=== PATIENT | male | born 1995 | race Caucasian/White ===

== ENCOUNTER 2018-09-19 20:05 | Emergency (ER) | payer SELFPAY ==
[~2018-09-19] VITALS: Ht 175.3 cm; Wt 109.3 kg
[2018-09-19 20:17] VITALS: BP 141/68
--- NOTE | 2018-09-19 20:19 | NUR ---
PT TO LOBBY W/ FRIEND JACK
--- NOTE | 2018-09-19 21:02 | NUR ---
PT TO ER BED 12
--- NOTE | 2018-09-19 21:05 | NUR ---
PATIENT PRESENTS TO ED WITH COUGH X 2 DAYS. PT STATES HE HAS NO RELIEF AND IS UNABLE TO SLEEP. PT HAS WHEEZING IN THE RIGHT LUNG EXPIRATORY. LEFT LUNG SOUNDS CLEAR. PATIENT STATES PAIN OF 5/10 AT THIS TIME; VSS; PATIENT POSITIONED FOR COMFORT; HOB ELEVATED; BEDRAILS UP X2; BED DOWN. ER MD MADE AWARE OF PT STATUS.
[2018-09-19] MEDS ORDERED: methylPREDNISolone SS 125 MG/2 ML VIAL IM ONE (21:30)
[2018-09-19] MEDS ORDERED: ALBUTEROL SULFATE/IPRATROPIU 3 ML SOL IH ONE (21:30)
[2018-09-19 23:05] VITALS: BP 137/85
--- NOTE | 2018-09-19 23:05 | NUR ---
Patient discharged with v/s stable. Written and verbal after care instructions given and explained. Patient alert, oriented and verbalized understanding of instructions. Ambulatory with steady gait. All questions addressed prior to discharge. ID band removed. Patient advised to follow up with PMD. Rx of PREDNISONE 50MG, PROMETHAZINE 6.25MG-15MG/5ML AND ALBUTEROL 90MCG/ACTUATION given. Patient educated on indication of medication including possible reaction and side effects. Opportunity to ask questions provided and answered.
== END 2018-09-19 23:05 | disposition home or self-care (01) ==
LOC: MED 20:05
DX: R05 Cough (principal); R06.02 Shortness of breath; R51 Headache; Z88.0 Allergy status to penicillin
CPT/HCPCS: 71045; 94640; 96372; 99283; J2930; J7620